=== PATIENT | male | born 1965 | race Caucasian/White ===

== ENCOUNTER 2025-02-02 06:15 | Day surgery (SDC) | payer OTHER, SELFPAY ==
[2025-01-16 09:09] LABS: Hematocrit 38.5 % (39.0-52.0); Mean Corp Hgb Conc. 33.8 g/dL (33.0-37.0); Mean Corpuscular Hgb 30.2 pg (27.0-31.0); Mean Corpuscular Volume 89.3 fL (80.0-94.0); Mean Platelet Volume 9.7 fL (7.4-10.4); Platelet Count 322 10^3/uL (130-400); Red Blood Cell Count 4.31 10^6/uL (4.70-6.10); Red Cell Dist. Width 13.2 % (11.5-14.5); White Blood Cell Count 5.3 10^3/uL (4.8-10.8)
[2025-01-16 14:06] VITALS: BMI 27.5
[2025-02-02] VITALS (13 sets, daily range): BP systolic 120–156; BP diastolic 84–103
[2025-02-02] MEDS: NORMOSOL-R/PLASMALYTE-A 1000 IV (08:45)
[2025-02-02] MEDS: TYLENOL 1000 MG PO (10:43)
[2025-02-02] MEDS: SUBLIMAZE 25 MCG IV ×3 (13:14→13:45)
[2025-02-02] MEDS: ROXICODONE 5 MG PO (14:48)
== END 2025-02-02 15:14 | disposition home or self-care (01) ==
LOC: SDS 06:15
PROVIDERS: ATTENDING PHYSICIAN Otolaryngology; FAMILY PHYSICIAN Family Medicine
DX: J32.2 Chronic ethmoidal sinusitis (principal); J32.3 Chronic sphenoidal sinusitis; J33.8 Other polyp of sinus
CPT/HCPCS: 31255; 31287; 88304; 88311; 85027; 93005